=== PATIENT | male | born 1990 | race Caucasian/White ===

== ENCOUNTER 2017-09-04 03:38 | Emergency (ER) | payer OTHER ==
[~2017-09-04] VITALS: Ht 180.3 cm; Wt 109.8 kg
[~2017-09-04 03:38] MED LIST: AZITHROMYCIN 2250 MG PO; BACTRIM DS TAB1 EACH PO; IBUPROFEN 800800 MG PO; INDOMETHACIN 5050 M1 PO; NAPROSYN375 MG PO; NOHOMEMEDICATIONS; NORCO 5-325 TA1 EACH PO; OSELB75 PO; PREDNISONE 10 M10 MG PO; ROBAXIN500 MG PO; TRAMADOL 50 MG50 MG PO
[2017-09-04 04:11] LABS: ABSOLUTE EOSINOPHILS 0.1 thou/uL (0.0-0.7); ABSOLUTE LYMPHOCYTES 3.3 thou/uL (0.8-5.3); ABSOLUTE MONOCYTES 0.7 thou/uL (0.0-1.2); ABSOLUTE NEUTROPHILS 6.9 thou/uL (1.6-8.1); BASOPHILS 0.1 %; EOSINOPHILS 1.2 %; HEMATOCRIT 45.6 % (42.0-52.0); HEMOGLOBIN 15.4 gm/dL (14.0-18.0); LYMPHOCYTES 29.8 %; MCH 29.5 pg (26.0-34.0); MCHC 33.9 g/dL (28.0-37.0); MONOCYTES 6.3 %; MPV 9.1 fl. (7.2-11.1); NUCLEATED RBCS 0 /100WBC; PLATELET COUNT* 239 thou/uL (150-400); POLYS 62.6 %; RBC 5.24 mil/uL (4.50-6.00); RDW-CV 13.8 % (10.5-14.5); WBC 10.9 thou/uL (4.0-11.0)
[2017-09-04 04:21] LABS: ANION GAP 12 mmol/L (7-16); BUN 18 mg/dL (7-18); CALCIUM 9.3 mg/dL (8.5-10.1); CHLORIDE 102 mmol/L (98-107); CO2 25 mmol/L (21-32); CREATININE 0.9 mg/dL (0.6-1.3); GLUCOSE 150 mg/dL (70-99); POTASSIUM 3.8 mmol/L (3.5-5.1); SODIUM 139 mmol/L (136-145)
[2017-09-04 04:28] LABS: ALBUMIN 3.9 g/dL (3.4-5.0); ALKALINE PHOSPHATASE 93 U/L (46-116); SGOT 36 U/L (15-37); SGPT 69 U/L (30-65); TOTAL BILIRUBIN 0.4 mg/dL (<0.1-1.0); TOTAL PROTEIN 7.8 g/dL (6.4-8.2); TROPONIN-I LEVEL <0.06 ng/mL (<0.06)
[2017-09-04 05:00] VITALS: BP 130/91
--- NOTE | 2017-09-04 13:57 | EKG ---
[place] [address] ELECTROCARDIOGRAM REPORT Name: MARIAJOSE RODRIGUEZ III [facility] [id number] Admission: 09/04/17 Attend Phys: Discharge: 09/04/17 Date of : 88 Report #: [id number] THIS REPORT FOR: //name// [facility] ED Test Date: 2017-09-04 Test Time: 03:43:00 Pat Name: MARIAJOSE RODRIGUEZ Department: Room: Gender: M Reacher: JOSE : 1990 Requested By: Marina Matias Order Number: [id number] Reading MD: Gopal Pichardo Measurements Intervals [place] Rate: 101 P: 37 MN: 127 QRS: 28 QRSD: 103 T: -2 QT: 330 QTc: 428 Interpretive Statements Sinus tachycardia ST elev, probable normal early repol pattern No previous ECG available for comparison Electronically Signed On 09-04-2017 13:56:54 CDT by Gopal Pichardo [email or web address] <ELECTRONICALLY SIGNED> By: Gopal Pichardo MD, [facility] 09/04/17 [id number] Gopal Pichardo MD, FACC /EPI
== END 2017-09-04 05:02 | disposition home or self-care (01) ==
LOC: M.ERS 03:38
PROVIDERS: Emergency Medicine
DX: R00.0 Tachycardia, unspecified (principal); F17.210 Nicotine dependence, cigarettes, uncomplicated

== ENCOUNTER 2017-10-21 00:47 | Emergency (ER) | payer OTHER ==
[~2017-10-21] VITALS: Ht 180.3 cm; Wt 111.1 kg
[2017-10-21] MEDS ORDERED: IBUPROFEN 800800 M1 PO (01:06)
[2017-10-21] MEDS ORDERED: NORCO 5-325 TA1 EACH PO (01:06)
[2017-10-21] MEDS ORDERED: FLEXERIL PO (01:06)
[2017-10-21 01:15] VITALS: BP 136/78
== END 2017-10-21 01:16 | disposition home or self-care (01) ==
LOC: M.ERS 00:47
DX: S03.01XA Dislocation of jaw, right side, initial encounter (principal); F17.210 Nicotine dependence, cigarettes, uncomplicated; W22.8XXA Striking against or struck by other objects, initial encounter; Y93.89 Activity, other specified; Y92.89 Other specified places as the place of occurrence of the external cause; Y99.8 Other external cause status

== ENCOUNTER 2017-11-05 21:37 | Emergency (ER) | payer OTHER ==
[~2017-11-05] VITALS: Ht 180.3 cm; Wt 104.3 kg
[~2017-11-05 21:37] MED LIST changes: +FLEXERIL PO; +IBUPROFEN 800800 M1 PO
[2017-11-05 21:43] VITALS: BP 140/89
[2017-11-05] MEDS ORDERED: KEFLEX500 M1 PO (22:10)
== END 2017-11-05 22:19 | disposition home or self-care (01) ==
LOC: M.ERS 21:37
DX: L03.031 Cellulitis of right toe (principal); F17.210 Nicotine dependence, cigarettes, uncomplicated

== ENCOUNTER 2020-06-15 02:58 | Emergency (ER) | payer OTHER ==
[~2020-06-15] VITALS: Ht 180.3 cm; Wt 106.1 kg
[~2020-06-15 02:58] MED LIST changes: +KEFLEX500 M1 PO
[2020-06-15] MEDS ORDERED: TRAMADOL 50 MG50 MG PO (03:42)
[2020-06-15] MEDS ORDERED: PREDNISONE50 MG PO (03:42)
[2020-06-15 03:48] VITALS: BP 122/82
== END 2020-06-15 03:48 | disposition home or self-care (01) ==
LOC: M.ERS 02:58
DX: M79.671 Pain in right foot (principal); M79.672 Pain in left foot; F17.210 Nicotine dependence, cigarettes, uncomplicated